=== PATIENT | male | born 1955 | race Caucasian/White ===

== ENCOUNTER → 2018-08-06 | Outpatient (CLI) | payer BC ==
[~2018-08-06] MED LIST: LOPID600 MG PO; MOTRIN800 MG PO; NEXIUM40 MG PO; VICODIN 5/500 505 MG PO
== END | disposition home or self-care (01) ==
LOC: ORTHO 03:53
DX: M79.89 Other specified soft tissue disorders (principal); M25.842 Other specified joint disorders, left hand

== ENCOUNTER 2019-03-18 15:10 | Inpatient (IN) | payer BC, MEDICARE ==
[~2019-03-18] VITALS: Ht 177.8 cm; Wt 79.8 kg
[2019-03-18 15:12] VITALS: BP 150/86
[2019-03-18 15:31] LABS: BASO # 0.1 10*3/uL (0.0-0.1); BASO % 0.9 % (0.0-1.0); EOS # 0.7 10*3/uL (0.0-0.4); EOS % 9.8 % (1.0-4.0); HEMATOCRIT 47.9 % (42.0-52.0); HEMOGLOBIN 16.1 g/dl (14.0-18.0); LYMPH # 1.7 10*3/uL (1.3-4.4); LYMPH % 23.7 % (27.0-41.0); MEAN CELL VOLUME 93.9 fl (80.0-94.0); MEAN CORPUSCULAR HGB 31.6 pg (27.0-31.0); MEAN CORPUSCULAR HGB CONC 33.6 g/dl (33.0-37.0); MEAN PLATELET VOLUME 9.4 fl (9.6-12.3); MONO # 0.6 10*3/uL (0.1-1.0); MONO % 8.1 % (3.0-9.0); NEUT % 57.1 % (47.0-73.0); PLATELET COUNT AUTOMATED 320 10*3/uL (130-400); RED CELL DISTRI WIDTH 12.4 % (0-14.5)
--- NOTE | 2019-03-18 15:36 | NUR ---
VISITING WITH FAMILY, WHEN ASKED IF HAVING PAIN PT STATES "NOT REALLY".
[2019-03-18 15:45] LABS: ACT PARTIAL THROMBO TIME 24.8 SECONDS (20.0-32.1); INTERNATIONAL NORM RATIO 0.9 (2.0-3.5)
[2019-03-18 15:47] VITALS: BP 150/88
[2019-03-18 15:49] LABS: ALBUMIN 4.1 gm/dl (3.1-4.5); ALKALINE PHOSPHATASE 84 U/L (45-117); BUN 18 mg/dl (7-24); CHLORIDE 103 mmol/L (98-107); CREATININE 1.43 mg/dL (0.70-1.30); POTASSIUM 4.2 mmol/L (3.5-5.1); SGOT/AST 25 IU/L (3-35); SGPT/ALT 39 U/L (12-78); SODIUM 140 mmol/L (136-145); TOTAL PROTEIN 8.3 gm/dL (6.4-8.2)
[2019-03-18 15:52] LABS: TROPONIN I < 0.015 ng/ml (<0.045)
--- NOTE | 2019-03-18 16:06 | NUR ---
VISITING WITH FAMILY. TELLS ME "FEEL GOOD".
[2019-03-18 16:07] VITALS: BP 141/87
[2019-03-18 16:20] VITALS: BP 130/82
[2019-03-18 16:40] VITALS: BP 142/79
--- NOTE | 2019-03-18 16:40 | NUR ---
A 63, admitted to 5E, under the services of NIKOS Luo DO with a diagnosis of CHEST HEAVINESS. Chief complaint is CHEST DISCOMFORT. Patient arrived via stretcher from ER. Monitor applied. Initial assessment completed. Vital signs taken and recorded. NIKOS LUO DO notified of admission to the unit. Orders received. See assessment for past medical history, medications and allergies. Patient and/or family oriented to unit. [address] visitation policy reviewed. Clothing/patient valuable form completed. CURTIS CORTES
[2019-03-18] MEDS ORDERED: PRILOSEC20 M1 PO (16:53)
[2019-03-18] MEDS ORDERED: ASPIRIN81 M1 PO (16:54)
--- NOTE | 2019-03-18 17:55 | NUR ---
DR GAINES NOTIFIED OF UPDATED OF MED REQ.
[2019-03-18 20:00] VITALS: BP 147/78
[2019-03-19] VITALS: BP 141/83
--- NOTE | 2019-03-19 01:23 | NUR ---
24 HR chart check completed.
[2019-03-19 06:44] LABS: BASO % 0.4 % (0.0-1.0); EOS # 0.5 10*3/uL (0.0-0.4); EOS % 4.8 % (1.0-4.0); HEMATOCRIT 44.6 % (42.0-52.0); HEMOGLOBIN 14.9 g/dl (14.0-18.0); LYMPH # 1.5 10*3/uL (1.3-4.4); LYMPH % 15.7 % (27.0-41.0); MEAN CELL VOLUME 93.3 fl (80.0-94.0); MEAN CORPUSCULAR HGB 31.2 pg (27.0-31.0); MEAN CORPUSCULAR HGB CONC 33.4 g/dl (33.0-37.0); MEAN PLATELET VOLUME 9.4 fl (9.6-12.3); MONO # 0.8 10*3/uL (0.1-1.0); MONO % 8.3 % (3.0-9.0); NEUT # 6.6 10*3/uL (2.3-7.9); NEUT % 70.5 % (47.0-73.0); PLATELET COUNT AUTOMATED 282 10*3/uL (130-400); RED BLOOD COUNT 4.78 10*6/uL (4.50-5.90); RED CELL DISTRI WIDTH 12.3 % (0-14.5); WHITE BLOOD COUNT 9.4 10*3/uL (4.8-10.8)
[2019-03-19 06:54] LABS: ACT PARTIAL THROMBO TIME 24.9 SECONDS (20.0-32.1)
[2019-03-19 07:23] LABS: CHLORIDE 104 mmol/L (98-107); POTASSIUM 4.2 mmol/L (3.5-5.1); SODIUM 137 mmol/L (136-145)
[2019-03-19 07:40] LABS: ALBUMIN 3.9 gm/dl (3.1-4.5); ALKALINE PHOSPHATASE 80 U/L (45-117); BUN 20 mg/dl (7-24); CHOLESTEROL 177 mg/dL (<200); CREATININE 1.18 mg/dL (0.70-1.30); FREE T4 0.96 ng/dl (0.76-1.46); HDL CHOLESTEROL 52 mg/dl (40-60); LDL CHOLESTEROL 104 mg/dL (9-159); PHOSPHOROUS 2.4 mg/dL (2.5-4.9); SGOT/AST 24 IU/L (3-35); SGPT/ALT 40 U/L (12-78); TOTAL PROTEIN 7.8 gm/dL (6.4-8.2); TRIGLYCERIDES 107 mg/dl (<150); VLDL CHOLESTEROL 21 mg/dL (6-40)
[2019-03-19 07:43] LABS: VITAMIN D, 25-HYDROXY 31.7 ng/mL (30-100)
[2019-03-19 08:00] VITALS: BP 118/62
--- NOTE | 2019-03-19 09:30 | NUR ---
INFORMED CONSENT OBTAINED FOR EXERCISE CARDIOLITE STRESS TEST WITH DR. JENSEN. RESTING EKG NSR WITH A SUPINE HR OF 65 WITH BP OF 140/86 AND HR OF 69 WITH BP OF 136/88 IN STANDING POSITION. PT COMPLETED 9:00 OF A MACHO PROTOCOL WITH COMPLETION OF STAGE III AT 3.4 MPH AND 14%. REACHED A PEAK HR OF 137 WHICH IS 88% OF PREDICTED MAX WITH A PEAK BP OF 170/78. IN STAGE III DEVELOPED CENTRAL CHEST DISCOMFORT THAT WAS A 2 ON PAIN SCALE. TEST TERMINATED BECAUSE OF FATIGUE AND SHORTNESS OF BREATH. DEVELOPED ST DEPRESSIONS IN LEADS II,III,AVF AND V3-V6. AT 2:00 RECOVERY CHEST DISCOMFORT DECREASED TO A 1 ON PAIN SCALE AND RELIEVED AT 3:00 RECOVERY. LAST RECOVERY HR OF 80 WITH BP OF 152/78. HAS A GOOD EXERCISE CAPACITY. DR. JENSEN EXPLAINED TO PT TO REMAIN NPO ON NURSING UNIT UNTIL NUCLEAR SCANNING IS COMPLETED AND READ. TO NUCLEAR IMAGING IN STABLE CONDITION FOR SCANNING.
--- NOTE | 2019-03-19 10:20 | NUR ---
PT RETURNED TO NURSING UNIT VIA WHEELCHAIR AND REPORT GIVEN TO REMAIN NPO UNTIL NUCLEAR IMAGING IS READ.
[2019-03-19 12:00] VITALS: BP 120/62
--- NOTE | 2019-03-19 12:21 | NUR ---
PATIENT TO BE TRANSFERED FOR HEART CATH.
--- NOTE | 2019-03-19 12:22 | NUR ---
Gas Flow Regulator in to talk to patient. Patient states lives at HOME with . There are BASEMENT steps in the home. Physician: KURT ROBLEDO Pharmacy: [facility] Home health services: NONE Patient's level of ADLs: INDEPENDENT Patient has working utilities: YES DME: NONE Follow-up physician's appointment after d/c: WILL BE MADE BY HOSPITALIST NURSE DIRECTOR ON DISCHARGE Does patient want to access PORTAL?: NO Discharge plan PT LIVES AT HOME WITH HIS AND IS INDEPENDENT IN HIS CARE. DENIES SHE WILL HAVE NEEDS AFTER DISCHARGE. PLAN IS TO RETURN HOME WITH . WILL CONTINUE TO MONITOR. STATES HE WILL HAVE A RIDE HOME.. JEEVAN KIDD
--- NOTE | 2019-03-19 13:57 | NUR ---
[facility] TO TRANSPORT PATIENT.
== END 2019-03-19 14:30 | disposition other institution (70) | DRG 206 ==
LOC: ED 15:10 → 5E 16:04 → EDHOLD 16:04 → 5E 16:40
PROVIDERS: Emergency Medicine; Internal Medicine; ADMIT Family Medicine
DX: M94.0 Chondrocostal junction syndrome [Tietze] (principal); I20.8 Other forms of angina pectoris; J44.9 Chronic obstructive pulmonary disease, unspecified; F41.9 Anxiety disorder, unspecified; E78.00 Pure hypercholesterolemia, unspecified; E78.5 Hyperlipidemia, unspecified; K21.9 Gastro-esophageal reflux disease without esophagitis; N18.3 Chronic kidney disease, stage 3 (moderate); E66.3 Overweight; R73.9 Hyperglycemia, unspecified; D72.810 Lymphocytopenia; Z83.3 Family history of diabetes mellitus; Z87.891 Personal history of nicotine dependence; Z80.6 Family history of leukemia; Z90.5 Acquired absence of kidney; Z79.82 Long term (current) use of aspirin; Z68.31 Body mass index [BMI] 31.0-31.9, adult; Z68.25 Body mass index [BMI] 25.0-25.9, adult

== ENCOUNTER 2020-01-17 10:13 | Observation (INO) | payer MEDICARE ==
[~2020-01-17] VITALS: Ht 180.3 cm; Wt 78.2 kg
[~2020-01-17 10:13] MED LIST changes: +ASPIRIN81 M1 PO; +PRILOSEC20 M1 PO
[2020-01-17 10:28] VITALS: BP 144/82
[2020-01-17 11:36] LABS: BASO % 0.3 % (0.0-1.0); EOS % 0.2 % (1.0-4.0); HEMATOCRIT 44.2 % (42.0-52.0); LYMPH % 16.5 % (27.0-41.0); MEAN CELL VOLUME 92.1 fl (80.0-94.0); MEAN CORPUSCULAR HGB 30.4 pg (27.0-31.0); MEAN PLATELET VOLUME 9.3 fl (9.6-12.3); MONO # 1.2 10*3/uL (0.1-1.0); NEUT # 3.9 10*3/uL (2.3-7.9); NEUT % 63.7 % (47.0-73.0); PLATELET COUNT AUTOMATED 180 10*3/uL (130-400); RED CELL DISTRI WIDTH 12.6 % (0-14.5); WHITE BLOOD COUNT 6.1 10*3/uL (4.8-10.8)
[2020-01-17 11:52] LABS: ALBUMIN 3.7 gm/dl (3.1-4.5); ALKALINE PHOSPHATASE 97 U/L (45-117); BUN 13 mg/dl (7-24); CHLORIDE 106 mmol/L (98-107); CREATININE 1.14 mg/dL (0.70-1.30); POTASSIUM 4.2 mmol/L (3.5-5.1); SGOT/AST 19 IU/L (3-35); SGPT/ALT 28 U/L (12-78); SODIUM 137 mmol/L (136-145)
[2020-01-17 11:55] LABS: TROPONIN I < 0.015 ng/ml (<0.045)
[2020-01-17 12:00] VITALS: BP 131/74
[2020-01-17 12:21] LABS: BILIRUBIN NEGATIVE; BLOOD NEGATIVE (NEGATIVE); CLARITY CLEAR (CLEAR); COLOR YELLOW (YELLOW); GLUCOSE NEGATIVE; KETONE NEGATIVE; LEUKO ESTERASE NEGATIVE (NEGATIVE); NITRITE NEGATIVE (NEGATIVE)
[2020-01-17 14:05] VITALS: BP 117/78
[2020-01-17 14:20] VITALS: BP 154/83
[2020-01-17] MEDS ORDERED: CLOPIDOGREL75 MG PO (14:45)
[2020-01-17] MEDS ORDERED: METOPROLOL SUCC25 M2 PO (14:46)
[2020-01-17] MEDS ORDERED: ATORVASTATIN CA40 M1 PO (14:46)
[2020-01-17] MEDS ORDERED: FAMOTIDINE20 M1 PO (14:50)
[2020-01-17 16:00] VITALS: BP 153/81
[2020-01-17 20:00] VITALS: BP 148/73
[2020-01-18] VITALS: BP 151/81
[2020-01-18 06:26] LABS: BASO % 0.4 % (0.0-1.0); EOS # 0.1 10*3/uL (0.0-0.4); EOS % 1.4 % (1.0-4.0); HEMATOCRIT 41.8 % (42.0-52.0); LYMPH # 1.7 10*3/uL (1.3-4.4); LYMPH % 34.6 % (27.0-41.0); MEAN CELL VOLUME 94.1 fl (80.0-94.0); MEAN CORPUSCULAR HGB 30.9 pg (27.0-31.0); MEAN CORPUSCULAR HGB CONC 32.8 g/dl (33.0-37.0); MEAN PLATELET VOLUME 9.1 fl (9.6-12.3); MONO # 0.8 10*3/uL (0.1-1.0); MONO % 15.7 % (3.0-9.0); NEUT # 2.3 10*3/uL (2.3-7.9); NEUT % 47.7 % (47.0-73.0); PLATELET COUNT AUTOMATED 147 10*3/uL (130-400); RED BLOOD COUNT 4.44 10*6/uL (4.50-5.90); RED CELL DISTRI WIDTH 12.8 % (0-14.5); WHITE BLOOD COUNT 4.9 10*3/uL (4.8-10.8)
[2020-01-18 06:40] LABS: ALBUMIN 3.3 gm/dl (3.1-4.5); ALKALINE PHOSPHATASE 86 U/L (45-117); BUN 14 mg/dl (7-24); CHLORIDE 109 mmol/L (98-107); CHOLESTEROL 114 mg/dL (<200); CREATININE 1.05 mg/dL (0.70-1.30); HDL CHOLESTEROL 40 mg/dl (40-60); LDL CHOLESTEROL 58 mg/dL (9-159); POTASSIUM 4.2 mmol/L (3.5-5.1); SGOT/AST 19 IU/L (3-35); SGPT/ALT 25 U/L (12-78); SODIUM 141 mmol/L (136-145); TRIGLYCERIDES 81 mg/dl (<150); VLDL CHOLESTEROL 16 mg/dL (6-40)
[2020-01-18 06:52] LABS: ACT PARTIAL THROMBO TIME 27.5 SECONDS (20.0-32.1)
[2020-01-18 07:26] LABS: VITAMIN D, 25-HYDROXY 49.8 ng/mL (30-100)
== END 2020-01-18 11:15 | disposition home or self-care (01) ==
LOC: ED 10:13 → EDHOLD 13:39 → 4E 14:03
PROVIDERS: Internal Medicine; ADMIT Emergency Medicine; ATTEND Emergency Medicine
DX: R55 Syncope and collapse (principal); I25.10 Atherosclerotic heart disease of native coronary artery without angina pectoris; I10 Essential (primary) hypertension; E78.5 Hyperlipidemia, unspecified; K21.9 Gastro-esophageal reflux disease without esophagitis; E83.41 Hypermagnesemia; E80.6 Other disorders of bilirubin metabolism; R00.1 Bradycardia, unspecified; D53.9 Nutritional anemia, unspecified; E87.8 Other disorders of electrolyte and fluid balance, not elsewhere classified; Z20.828 Contact with and (suspected) exposure to other viral communicable diseases

== ENCOUNTER → 2020-03-25 | Outpatient (CLI) | payer MEDICARE ==
[~2020-03-25] MED LIST changes: +ATORVASTATIN CA40 M1 PO; +CLOPIDOGREL75 MG PO; +FAMOTIDINE20 M1 PO; +METOPROLOL SUCC25 M2 PO
--- NOTE | 2020-03-25 11:05 | NUR ---
INFORMED CONSENT SIGNED FOR CARDIOLYTE STRESS TEST WITH DR. MARIO. RESTING EKG NSR, HR 61,BP 142/86. COMPLETED 10:00 OF A STANDARD MACHO PROTOCOL COMPLETING 1:00 STGE IV, 4.2 MPH/16% GRADE. TEST TERMINATED D/T FATIGUE. PEAK HEART RATE OF 133 ACHIEVED WHICH IS 86% PREDICATED MAXIMUM AND A PEAK BP OF 182/78. NONDIAGNOSTIC ST CHANGES NOTED WITH NO ARRHTHMIAS. HAS A GOOD EXERCISE TOLERANCE. LAST RECOVERY HR 83, BP 112/70. WAITING NUCLEAR SCANNING IN STABLE CONDITION.
== END | disposition home or self-care (01) ==
LOC: CARD 00:20
PROVIDERS: ATTEND Internal Medicine Cardiovascular Disease
DX: I25.10 Atherosclerotic heart disease of native coronary artery without angina pectoris (principal); I10 Essential (primary) hypertension; E78.5 Hyperlipidemia, unspecified

== ENCOUNTER → 2021-03-23 | Outpatient (CLI) | payer MEDICARE | END | disposition home or self-care (01) | LOC: US 07:21 | PROVIDERS: ATTEND Nurse Practitioner Primary Care | DX: N28.89 Other specified disorders of kidney and ureter (principal); R17 Unspecified jaundice ==

== ENCOUNTER → 2021-03-31 | Outpatient (CLI) | payer MEDICARE | END | disposition home or self-care (01) | LOC: LAB 14:43 | PROVIDERS: ATTEND Internal Medicine Cardiovascular Disease | DX: R53.83 Other fatigue (principal); R00.1 Bradycardia, unspecified ==

== ENCOUNTER → 2023-02-28 | Outpatient (CLI) | payer MEDICARE | END | disposition home or self-care (01) | LOC: US 03:23 | PROVIDERS: ATTEND Nurse Practitioner Primary Care | DX: K76.0 Fatty (change of) liver, not elsewhere classified (principal); K82.4 Cholesterolosis of gallbladder; Z90.5 Acquired absence of kidney ==

== ENCOUNTER → 2024-01-30 | Outpatient (CLI) | payer MEDICARE | END | disposition home or self-care (01) | LOC: LAB 13:55 | PROVIDERS: ATTEND Nurse Practitioner Primary Care | DX: S40.861A Insect bite (nonvenomous) of right upper arm, initial encounter (principal); X58.XXXA Exposure to other specified factors, initial encounter; Y93.89 Activity, other specified; Y92.89 Other specified places as the place of occurrence of the external cause; Y99.8 Other external cause status ==

== ENCOUNTER → 2024-08-26 | Outpatient (CLI) | payer MEDICARE ==
[2024-08-26 10:56] LABS: BASO % 0.4 % (0.0-1.0); EOS # 0.1 10*3/uL (0.0-0.4); EOS % 1.3 % (1.0-4.0); HEMATOCRIT 45.6 % (42.0-52.0); MEAN CELL VOLUME 92.9 fl (80.0-94.0); MEAN CORPUSCULAR HGB 31.8 pg (27.0-31.0); MEAN CORPUSCULAR HGB CONC 34.2 g/dl (33.0-37.0); MEAN PLATELET VOLUME 9.5 fl (9.6-12.3); MONO # 0.7 10*3/uL (0.1-1.0); MONO % 9.7 % (3.0-9.0); NEUT # 4.6 10*3/uL (2.3-7.9); NEUT % 64.6 % (47.0-73.0); PLATELET COUNT AUTOMATED 205 10*3/uL (130-400); RED BLOOD COUNT 4.91 10*6/uL (4.50-5.90); RED CELL DISTRI WIDTH 12.7 % (0-14.5); WHITE BLOOD COUNT 7.1 10*3/uL (4.8-10.8)
[2024-08-26 11:33] LABS: ALKALINE PHOSPHATASE 100 U/L (46-116); BUN 14 mg/dl (9-23); CHLORIDE 103 mmol/L (98-107); CHOLESTEROL 135 mg/dL (<200); LDL CHOLESTEROL 63 mg/dL (9-159); POTASSIUM 4.2 mmol/L (3.4-5.1); SGPT/ALT 29 U/L (5-49); TOTAL PROTEIN 7.3 gm/dL (6.0-8.0); TRIGLYCERIDES 154 mg/dl (<150); URIC ACID 7.4 mg/dL (3.7-9.2)
== END | disposition home or self-care (01) ==
LOC: LAB 10:26
PROVIDERS: ATTEND Nurse Practitioner Primary Care
DX: Z12.5 Encounter for screening for malignant neoplasm of prostate (principal); E78.5 Hyperlipidemia, unspecified; R17 Unspecified jaundice; M10.9 Gout, unspecified

== ENCOUNTER 2024-12-21 09:16 | Emergency (ER) | payer MEDICARE ==
[~2024-12-21] VITALS: Ht 177.8 cm; Wt 81.6 kg
[2024-12-21] MEDS ORDERED: OMEPRAZOLE40 MG PO (09:25)
== END 2024-12-21 12:09 | disposition home or self-care (01) ==
LOC: ED 09:16
DX: S92.101A Unspecified fracture of right talus, initial encounter for closed fracture (principal); S90.02XA Contusion of left ankle, initial encounter; S90.32XA Contusion of left foot, initial encounter; Z88.6 Allergy status to analgesic agent; Z79.899 Other long term (current) drug therapy; Z79.82 Long term (current) use of aspirin; Z95.5 Presence of coronary angioplasty implant and graft; Z90.5 Acquired absence of kidney; Z87.891 Personal history of nicotine dependence; W11.XXXA Fall on and from ladder, initial encounter; Y93.89 Activity, other specified; Y92.89 Other specified places as the place of occurrence of the external cause; Y99.8 Other external cause status

== ENCOUNTER → 2025-02-27 | Outpatient (CLI) | payer MEDICARE ==
[~2025-02-27] MED LIST changes: +OMEPRAZOLE40 MG PO
[2025-02-27 10:07] LABS: BASO # 0.0 10*3/uL (0.0-0.1); BASO % 0.4 % (0.0-1.0); EOS # 0.1 10*3/uL (0.0-0.4); EOS % 1.6 % (1.0-4.0); MEAN CELL VOLUME 92.2 fl (80.0-94.0); MEAN CORPUSCULAR HGB 31.1 pg (27.0-31.0); MEAN PLATELET VOLUME 9.1 fl (9.6-12.3); MONO # 0.7 10*3/uL (0.1-1.0); MONO % 9.0 % (3.0-9.0); NEUT # 4.8 10*3/uL (2.3-7.9); NEUT % 65.6 % (47.0-73.0); NUCLEATED RED BLOOD CELL 0.0 % (0.0-0.0); NUCLEATED RED BLOOD CELL 0.0 10*3/uL (0.0-0.0); PLATELET COUNT AUTOMATED 214 10*3/uL (130-400); RED CELL DISTRI WIDTH 12.9 % (0-14.5)
[2025-02-27 10:29] LABS: BUN 19 mg/dl (9-23); LDL CHOLESTEROL 70 mg/dL (9-159); SGPT/ALT 25 U/L (5-49)
== END | disposition home or self-care (01) ==
LOC: LAB 09:50
PROVIDERS: ATTEND Nurse Practitioner Primary Care
DX: E78.5 Hyperlipidemia, unspecified (principal)

== ENCOUNTER → 2025-03-31 | Outpatient (CLI) | payer MEDICARE ==
[2025-03-31 12:51] LABS: BUN 17 mg/dl (9-23)
== END | disposition home or self-care (01) ==
LOC: LAB 12:15
PROVIDERS: ATTEND Nurse Practitioner Primary Care
DX: M10.9 Gout, unspecified (principal); Z90.5 Acquired absence of kidney